=== PATIENT | female | born 1965 | race Caucasian/White ===

== ENCOUNTER 2019-09-19 09:21 | Emergency (ER) | payer OTHER ==
[~2019-09-19] VITALS: Ht 175.3 cm; Wt 49.9 kg
[2019-09-19 09:48] VITALS: BP 120/74
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
[2019-09-19] MEDS ORDERED: Tylenol #3 tab (300mg/30mg) PO ONE (10:00)
[2019-09-19] MEDS ORDERED: Tetanus/Diptheria/Pertussis IM ONE (10:00)
--- NOTE | 2019-09-19 11:21 | Diagnostic Imaging Report ---
EXAM: XR Left Hand Complete, 3 or More Views CLINICAL HISTORY: PAIN TECHNIQUE: Frontal, lateral and oblique views of the left hand. COMPARISON: No relevant prior studies available. FINDINGS: Bones/joints: Nondisplaced comminuted fracture mid metacarpal second digit. No dislocation. Soft tissues: Unremarkable. No radiopaque foreign body. IMPRESSION: Nondisplaced comminuted fracture mid metacarpal second digit. No dislocation.
[2019-09-19] MEDS ORDERED: Bacitracin Oint UD TOPIC ONE (11:45)
[2019-09-19] MEDS ORDERED: CLINDAMYCIN HC300 MG ORAL (11:45)
[2019-09-19] MEDS ORDERED: Clindamycin 150mg cap ORAL ONE (11:45)
[2019-09-19] MEDS ORDERED: TYLENOL EXTRA500 MG ORAL (11:45)
--- NOTE | 2019-09-19 11:55 | NUR ---
ED Nurse Note: Bacitracin bandage and splint applied to left hand.
[2019-09-19 12:05] VITALS: BP 120/74
--- NOTE | 2019-09-19 12:05 | NUR ---
ER DISCHARGE NOTE: Patient cleared for DC per Dr. Vega. Patient AxO x 4, VSS. Patient verbalized understanding of DC instructions. ID band removed. Patient walks with steady gait, took all belongings.
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
== END 2019-09-19 12:05 | disposition home or self-care (01) ==
LOC: EMR 09:50
DX: S62.301A Unspecified fracture of second metacarpal bone, left hand, initial encounter for closed fracture (principal); N75.0 Cyst of Bartholin's gland; Z23 Encounter for immunization; Y08.89XA Assault by other specified means, initial encounter; Y92.9 Unspecified place or not applicable
CPT/HCPCS: 29125; 56420; 73130; 90471; 90715; Z7502; 99283

== ENCOUNTER 2019-11-27 20:11 | Emergency (ER) | payer OTHER ==
[~2019-11-27] VITALS: Ht 175.3 cm; Wt 49.9 kg
[~2019-11-27 20:11] MED LIST: CLINDAMYCIN HC300 MG ORAL; TYLENOL EXTRA500 MG ORAL
--- NOTE | 2019-11-27 20:20 | NUR ---
ED Nurse Note: pt called, not in waiting room
[2019-11-27 20:40] VITALS: BP 101/56
--- NOTE | 2019-11-27 20:40 | NUR ---
ED Nurse Note: Pt walked into ED for c/o urinary frequency and incontinence. Pt also c/o diarrhea and abscess to back of L upper leg. Pt is aaox4, ambulatory with steady gait. No respiratory or cardiac distress noted.
[2019-11-27] MEDS ORDERED: CEPHALEXIN500 MG ORAL (21:01)
--- NOTE | 2019-11-27 21:06 | Emergency Room Report ---
History of Present Illness General Chief Complaint: Female Urogenital Problems Source: Patient Present Illness HPI Patient presents with complaints of urinary frequency Triage reports no discomfort however patient does report discomfort with urination feels like she has a bladder infection Patient also complains of a red lesion left upper thigh area somewhat tender to touch denies any fevers or chills denies any cough Denies any chest pain or shortness of breath Allergies: Coded Allergies: No Known Allergies (Unverified , 09/19/19) COVID-19 Screening Contact w/high risk pt: No Recent Travel to affected area: No Experienced COVID-19 symptoms?: No Patient History Past Medical History: see triage record Last Menstrual Period: n/a Reviewed Nursing Documentation: PMH: Agreed; PSxH: Agreed Nursing Documentation-PMH Past Medical History: No Stated History Review of Systems All Other Systems: negative except mentioned in HPI Physical Exam Vital Signs Date Time Temp Pulse Resp B/P (MAP) Pulse Ox O2 Delivery O2 Flow Rate FiO2 11/27/19 20:28 97.7 111 20 101/56 (71) 95 Room Air Sp02 EP Interpretation: reviewed, normal General Appearance: well appearing, no apparent distress Head: normocephalic, atraumatic Eyes: bilateral eye PERRL, bilateral eye EOMI ENT: hearing grossly normal, normal pharynx, TMs + canals normal, uvula midline Neck: full range of motion, supple, no meningismus, no bony tend Respiratory: lungs clear, normal breath sounds, no rhonchi, no respiratory distress, no retraction, no accessory muscle use Cardiovascular #1: normal peripheral pulses, regular rate, rhythm, no edema, no gallop, no JVD, no murmur Gastrointestinal: normal bowel sounds, non tender, soft, no mass, no organomegaly, non-distended, no guarding, no hernia, no pulsatile mass, no rebound Genitourinary: no CVA tenderness Musculoskeletal: normal inspection Neurologic: motor strength/tone normal, military source operations specialist III-XII nml as tested, oriented x3 , sensory intact, responsive Psychiatric: mood/affect normal Skin: other - Small folliculitis left upper thigh posteriorly no obvious fluctuance no dermatomal spread Lymphatic: normal inspection, no adenopathy Medical Decision Making Diagnostic Impression: Primary Impression: uti Additional Impression: folliculitis ER Course Given the patient's history and presentation multiple differentials are in consideration the area on the skin appears to be consistent with folliculitis patient also has history and Clinical intake consistent with UTI patient placed on appropriate antibiotics and requires close outpatient follow-up Last Vital Signs Date Time Temp Pulse Resp B/P (MAP) Pulse Ox O2 Delivery O2 Flow Rate FiO2 11/27/19 20:28 97.7 111 20 101/56 (71) 95 Room Air Status: improved Disposition: HOME, SELF-CARE Condition: Improved Scripts Cephalexin* (KEFLEX*) 500 Mg Capsule 500 MG ORAL EVERY 6 HOURS for 5 Days, CAP Prov: Jared Huerta DO 11/27/19 Referrals: [facility] Patient Instructions: Urinary Tract Infection, Folliculitis Additional Instructions: Patient is provided with the discharge instructions notified to follow up with primary doctor in the next 2-3 days otherwise return to the er with any worsening symptoms. Please note that this report is being documented using [employer] technology. This can lead to erroneous entry secondary to incorrect interpretation by the dictating instrument. Jared Huerta DO Nov 27, 2019 21:06
[2019-11-27 21:13] LABS: BILIRUBIN, URINE 1+ (NEGATIVE); GLUCOSE, URINE (UA) NEGATIVE (NEGATIVE); KETONES,URINE 1+ (NEGATIVE); LEUKOCYTE ESTERASE ,URINE 3+ (NEGATIVE); NITRITE,URINE NEGATIVE (NEGATIVE); PH,URINE 5 (4.5-8.0); PROTEIN,URINE 2+ (NEGATIVE); UROBILINOGEN,URINE 4 MG/DL (0.0-1.0)
[2019-11-27 21:16] LABS: APPEARANCE,URINE SLIGHTLY CLOUDY; COLOR,URINE YELLOW
[2019-11-27 21:30] VITALS: BP 106/72
--- NOTE | 2019-11-27 21:30 | NUR ---
ER DISCHARGE NOTE: Patient is cleared to be discharged per ERMD, pt is aox4, on room air, with stable vital signs. pt was given dc and prescription instructions, pt was able to verbalize understanding, pt id band removed. pt is able to ambulate with steady gait. pt took all belongings.
== END 2019-11-27 21:30 | disposition home or self-care (01) ==
LOC: EMR 20:48
DX: N39.0 Urinary tract infection, site not specified (principal); L73.9 Follicular disorder, unspecified; L98.8 Other specified disorders of the skin and subcutaneous tissue
CPT/HCPCS: 81003; Z7502; 99283

== ENCOUNTER 2020-05-17 09:59 | Emergency (ER) | payer OTHER ==
[~2020-05-17] VITALS: Ht 172.7 cm; Wt 49.9 kg
[~2020-05-17 09:59] MED LIST changes: +CEPHALEXIN500 MG ORAL
[2020-05-17 10:10] VITALS: BP 117/81
[2020-05-17 10:37] LABS: APPEARANCE,URINE SLIGHTLY CLOUDY; BILIRUBIN, URINE NEGATIVE (NEGATIVE); COLOR,URINE PALE YELLOW; GLUCOSE, URINE (UA) NEGATIVE (NEGATIVE); KETONES,URINE NEGATIVE (NEGATIVE); LEUKOCYTE ESTERASE ,URINE 2+ (NEGATIVE); NITRITE,URINE NEGATIVE (NEGATIVE); PH,URINE 5 (4.5-8.0); PROTEIN,URINE NEGATIVE (NEGATIVE); UROBILINOGEN,URINE NORMAL MG/DL (0.0-1.0)
--- NOTE | 2020-05-17 11:28 | Emergency Room Report ---
History of Present Illness General Chief Complaint: Female Urogenital Problems Source: Patient Present Illness HPI Patient states that for the past few days she has noted burning when she urinates. She states she is also had some flank pain on her left side. She denies fever or chills. She denies nausea or vomiting. She denies cough or congestion. She also has a separate complaint where she has had an ongoing scaly lesion on her scalp. She states this is not resolved. She would like me to evaluate it. She has no other complaints. Allergies: Coded Allergies: No Known Allergies (Unverified , 09/19/19) COVID-19 Screening Contact w/high risk pt: No Recent Travel to affected area: No Experienced COVID-19 symptoms?: No COVID-19 Testing performed RESIDENTIAL INSURANCE INSPECTOR: No Patient History Past Medical History: none, see triage record Social History: Reports: smoking; Denies: alcohol use, drug use Now: No Reviewed Nursing Documentation: PMH: Agreed; PSxH: Agreed Nursing Documentation-PMH Past Medical History: No History, Except For History Of Psychiatric Problem: Yes - PTSD Review of Systems All Other Systems: negative except mentioned in HPI Physical Exam Vital Signs Date Time Temp Pulse Resp B/P (MAP) Pulse Ox O2 Delivery O2 Flow Rate FiO2 05/17/20 10:02 98.2 93 16 110/74 (86) 95 Room Air Sp02 EP Interpretation: reviewed, normal General Appearance: no apparent distress, alert, GCS 15, non-toxic Head: normocephalic, atraumatic Eyes: bilateral eye normal inspection, bilateral eye PERRL ENT: hearing grossly normal, normal pharynx, no angioedema, normal voice Neck: full range of motion, supple/symm/no masses Respiratory: no respiratory distress, no retraction, no accessory muscle use, speaking full sentences Cardiovascular #1: regular rate, rhythm, no edema Gastrointestinal: normal bowel sounds, non tender, soft, non-distended, no guarding, no rebound Rectal: deferred Genitourinary: CVA tenderness (L) Musculoskeletal: back normal, normal range of motion, gait/station normal, non- tender Neurologic: alert, motor strength/tone normal, oriented x3, sensory intact, responsive, speech normal Psychiatric: judgement/insight normal, memory normal, mood/affect normal, no suicidal/homicidal ideation Skin: other - scaly lesion on scalp [id number], dry, peeling, area of hair loss. Medical Decision Making Diagnostic Impression: Primary Impression: UTI (urinary tract infection) Additional Impression: Tinea ER Course The patient's urinalysis is contaminated. Given that the patient has symptoms, I will go ahead and treat her with a course of antibiotics. Patient has a lesion on her scalp that is consistent with likely tinea corporis. I will give her a topical antifungal. Regardless, the patient's findings are not a medical emergency. The patient is instructed to follow-up closely with her primary care physician for further evaluation and treatment. At this time I did not identify an emergency medical admission. Laboratory Tests Test 05/17/20 10:24 Urine Color Pale yellow Urine Appearance Slightly cloudy Urine pH 5 (4.5-8.0) Urine Specific [place] 1.020 (1.005-1.035) Urine Protein Negative (NEGATIVE) Urine Glucose (UA) Negative (NEGATIVE) Urine Ketones Negative (NEGATIVE) Urine Blood 1+ (NEGATIVE) H Urine Nitrite Negative (NEGATIVE) Urine Bilirubin Negative (NEGATIVE) Urine Urobilinogen Normal MG/DL (0.0-1.0) Urine Leukocyte Esterase 2+ (NEGATIVE) H Urine RBC 2-4 /HPF (0 - 2) H Urine WBC 5-10 /HPF (0 - 2) H Urine Squamous Epithelial Cells Many /LPF (NONE/OCC) H Urine Bacteria Few /HPF (NONE) Last Vital Signs Date Time Temp Pulse Resp B/P (MAP) Pulse Ox O2 Delivery O2 Flow Rate FiO2 05/17/20 10:10 98.0 81 16 117/81 95 Room Air Status: improved Disposition: HOME, SELF-CARE Condition: Improved Referrals: NON PHYSICIAN (PCP) Farida Lainez DO May 17, 2020 11:28
[2020-05-17] MEDS ORDERED: NITROFURANTOIN100 M2 ORAL (11:29)
[2020-05-17] MEDS ORDERED: CLOTRIMAZOLE15 GM TOPIC (11:29)
[2020-05-17] MEDS ORDERED: IBUPROFEN600 M1 ORAL (11:33)
[2020-05-17 11:42] VITALS: BP 126/84
== END 2020-05-17 11:42 | disposition home or self-care (01) ==
LOC: EMR 10:39
DX: N39.0 Urinary tract infection, site not specified (principal); B35.9 Dermatophytosis, unspecified; F17.200 Nicotine dependence, unspecified, uncomplicated
CPT/HCPCS: 81003; Z7502; 99282

== ENCOUNTER 2020-05-26 11:46 | Emergency (ER) | payer OTHER ==
[~2020-05-26] VITALS: Ht 174 cm; Wt 49.9 kg
[~2020-05-26 11:46] MED LIST changes: +CLOTRIMAZOLE15 GM TOPIC; +IBUPROFEN600 M1 ORAL; +NITROFURANTOIN100 M2 ORAL
[2020-05-26 11:51] VITALS: BP 93/61
[2020-05-26] MEDS ORDERED: cefTRIAXone 1 GM in NS 55 ML IV ONE (12:15)
[2020-05-26] MEDS ORDERED: Omnipaque-300 100ml vial INJ PRN (12:15)
[2020-05-26] MEDS ORDERED: Ketorolac 30mg Inj IV ONE (12:15)
[2020-05-26] MEDS ORDERED: Hydromorphone 0.5mg/0.5ml inj IVP ONE (12:15)
--- NOTE | 2020-05-26 12:15 | Emergency Room Report ---
History of Present Illness General Chief Complaint: Lower Back Pain or Injury Source: Patient (Steve Ashford MD) Present Illness HPI 55-year-old female presents with dysuria, flank pain x7 days, patient states that she has been taking her Macrobid intermittently, now she has fevers chills, flank pain, nausea vomiting, no known aggravating leaving factors severity is moderate, she describes the pain is sharp in the flank patient presents for evaluation and treatment (Steve Ashford MD) Allergies: Coded Allergies: No Known Allergies (Unverified , 09/19/19) COVID-19 Screening Contact w/high risk pt: No Recent Travel to affected area: No Experienced COVID-19 symptoms?: No COVID-19 Testing performed STRATEGIC MANAGER: No (Steve Ashford MD) Patient History Past Medical History: see triage record Social History: Reports: smoking Reviewed Nursing Documentation: PMH: Agreed; PSxH: Agreed (Steve Ashford MD) Review of Systems All Other Systems: negative except mentioned in HPI (Steve Ashford MD) Physical Exam Vital Signs Date Time Temp Pulse Resp B/P (MAP) Pulse Ox O2 Delivery O2 Flow Rate FiO2 05/26/20 11:50 97.5 117 20 93/61 (72) Room Air Sp02 EP Interpretation: reviewed, normal General Appearance: well appearing, no apparent distress, alert Head: normocephalic, atraumatic Eyes: bilateral eye PERRL, bilateral eye EOMI ENT: uvula midline, moist mucus membranes Neck: supple, thyroid normal, supple/symm/no masses Respiratory: lungs clear, no respiratory distress, no retraction, no accessory muscle use Cardiovascular #1: normal peripheral pulses, no edema, no gallop, no murmur, tachycardia Gastrointestinal: non tender, soft, no guarding, no rebound Genitourinary: CVA tenderness (R), CVA tenderness (L) Musculoskeletal: normal inspection Neurologic: alert, oriented x3 Psychiatric: mood/affect normal Skin: no rash, warm/dry (Steve Ashford MD) Procedures Critical Care Time Critical Care Time Given the critical condition in which the patient arrived, the patient was immediately assessed by myself and the nurse, and cardiac monitoring initiated due to the potential for rapid decompensation of the patient's clinical condition. During the course of the patient's stay, I spent a considerable amount of time at the bedside performing serial re-evaluations of the patient's hemodynamic and clinical status because of the recognized potential threat to life or limb in this condition. I then had a chance to review not only all of the available current laboratory and radiographic studies obtained today, but I also reviewed old records available to me at the time. Additionally, any ancillary information available including binding cementer french cord records were reviewed. Sequential vital signs were obtained. Critical Care time of 33 minutes was performed exclusive of billable procedures. (Steve Ashford MD) Medical Decision Making Diagnostic Impression: Primary Impression: UTI (urinary tract infection) Qualified Codes: N30.00 - Acute cystitis without hematuria Additional Impression: Pyelonephritis ER Course 35-year-old female presents with dysuria flank pain concerning for pyelonephritis patient is tachycardic, hypotensive. Patient given 2 L of NS, patient given ceftriaxone plan for admission to the hospital for pyelonephritis patient hypotension improved with fluid administration Patient accepted by ATA KUMAR MD at [facility] Pending CT scan signed out to ER physician Dr. Palacio Laboratory Tests Test 05/26/20 12:30 White Blood Count 5.9 K/UL (4.8-10.8) Red Blood Count 5.30 M/UL (4.20-5.40) Hemoglobin 16.6 G/DL (12.0-16.0) H Hematocrit 46.9 % (37.0-47.0) Mean Corpuscular Volume 88 FL (80-99) Mean Corpuscular Hemoglobin 31.3 PG (27.0-31.0) H Mean Corpuscular Hemoglobin Concent 35.3 G/DL (32.0-36.0) Red Cell Distribution Width 11.7 % (11.6-14.8) Platelet Count 297 K/UL (150-450) Mean Platelet Volume 6.1 FL (6.5-10.1) L Neutrophils (%) (Auto) 43.8 % (45.0-75.0) L Lymphocytes (%) (Auto) 36.9 % (20.0-45.0) Monocytes (%) (Auto) 15.0 % (1.0-10.0) H Eosinophils (%) (Auto) 2.7 % (0.0-3.0) Basophils (%) (Auto) 1.5 % (0.0-2.0) Urine Color Pale yellow Urine Appearance Cloudy Urine pH 5 (4.5-8.0) Urine Specific [place] 1.025 (1.005-1.035) Urine Protein 2+ (NEGATIVE) H Urine Glucose (UA) Negative (NEGATIVE) Urine Ketones 1+ (NEGATIVE) H Urine Blood 1+ (NEGATIVE) H Urine Nitrite Negative (NEGATIVE) Urine Bilirubin Negative (NEGATIVE) Urine Urobilinogen 4 MG/DL (0.0-1.0) H Urine Leukocyte Esterase 3+ (NEGATIVE) H Urine RBC 0-2 /HPF (0 - 2) Urine WBC 5-10 /HPF (0 - 2) H Urine Squamous Epithelial Cells Moderate /LPF (NONE/OCC) H Urine Bacteria Moderate /HPF (NONE) H Sodium Level 139 MMOL/L (136-145) Potassium Level 3.6 MMOL/L (3.5-5.1) Chloride Level 101 MMOL/L (98-107) Carbon Dioxide Level 33 MMOL/L (21-32) H Anion Gap 5 mmol/L (5-15) Blood Urea Nitrogen 25 mg/dL (7-18) H Creatinine 1.0 MG/DL (0.55-1.30) Estimated Glomerular Filtration Rate 57.1 mL/min (>60) Glucose Level 112 MG/DL (74-106) H Lactic Acid Level 1.70 mmol/L (0.4-2.0) Calcium Level 10.0 MG/DL (8.5-10.1) Total Bilirubin 0.4 MG/DL (0.2-1.0) Aspartate Amino Transferase (AST) 15 U/L (15-37) Alanine Aminotransferase (ALT) 27 U/L (12-78) Alkaline Phosphatase 105 U/L (46-116) Total Protein 6.8 G/DL (6.4-8.2) Albumin 3.7 G/DL (3.4-5.0) Globulin 3.1 g/dL Albumin/Globulin Ratio 1.2 (1.0-2.7) Lipase 228 U/L (73-393) Microbiology Date/Time Source Procedure Growth Status 05/26/20 13:00 Nasopharynx SARS-CoV-2 RdRp Gene Assay - Final Complete (Steve Ashford MD) ER Course CT abd pel: Findings: Lack of enteric contrast limits assessment of the GI tract. The stomach is somewhat distended, filled with liquid and semisolid material. The duodenum is also distended. Duodenal distention extends to the ligament of Treitz. However, no obstructing mass is demonstrated. What is probably a normal appendix is demo nstrated. There is moderate retained stool throughout the colon. No evidence of diverticulosis or diverticulitis. No small bowel distention. No free or loculated intraperitoneal gas or fluid is evident. The distal esophagus is unremarkable. The liver, gallbladder, bile ducts are unremarkable. The pancreas demonstrates dilatation of the downstream pancreatic duct. No obstructive lesion is demonstrated. No pancreatic parenchymal abnormality is evident. The spleen is unremarkable. The adrenals, kidneys are unremarkable. No retroperitoneal or mesenteric mass or adenopathy. No pelvic mass or adenopathy. Uterus and adnexal structures are unremarkable. The included lung bases demonstrate posterior dependent atelectatic changes on the right. The bones are unremarkable for age. Impression: Limited assessment of the GI tract, due to lack of enteric contrast administration Distended stomach and duodenum, distention extending to the ligament of Treitz. No obstructing mass demonstrated. 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 Correlate with clinical findings Dilatation of the downstream pancreatic duct. No obstructive lesion demonstrated, however. Etiology/significance uncertain. Patient was endorsed to me by the previous physician. She remained hemodynamically stable and neurovascularly intact in the emergency department and in no acute distress. She underwent a CT abdomen pelvis that did not show any acute emergent conditions. Patient was transferred to [facility] in stable condition. (Moises Palacio M.D.) Last Vital Signs Date Time Temp Pulse Resp B/P (MAP) Pulse Ox O2 Delivery O2 Flow Rate FiO2 05/26/20 11:51 97.5 117 20 93/61 Room Air (Steve Ashford MD) Disposition: SHORT-TERM HOSP - [facility] Condition: Serious Referrals: NON PHYSICIAN (PCP) Steve Ashford MD May 26, 2020 12:15 Moises Palacio M.D. May 26, 2020 15:43
[2020-05-26 12:44] LABS: APPEARANCE,URINE CLOUDY; BILIRUBIN, URINE NEGATIVE (NEGATIVE); GLUCOSE, URINE (UA) NEGATIVE (NEGATIVE); KETONES,URINE 1+ (NEGATIVE); LEUKOCYTE ESTERASE ,URINE 3+ (NEGATIVE); NITRITE,URINE NEGATIVE (NEGATIVE); PH,URINE 5 (4.5-8.0); PROTEIN,URINE 2+ (NEGATIVE); UROBILINOGEN,URINE 4 MG/DL (0.0-1.0)
[2020-05-26 12:47] LABS: COLOR,URINE PALE YELLOW
[2020-05-26 12:51] LABS: POTASSIUM 3.6 MMOL/L (3.5-5.1)
[2020-05-26 12:56] LABS: ALBUMIN 3.7 G/DL (3.4-5.0); ALBUMIN/GLOBULIN RATIO 1.2 (1.0-2.7); BILIRUBIN,TOTAL 0.4 MG/DL (0.2-1.0)
[2020-05-26 13:01] LABS: BASOPHILS % (AUTO) 1.5 % (0.0-2.0); EOSINOPHILS % (AUTO) 2.7 % (0.0-3.0); HEMATOCRIT 46.9 % (37.0-47.0); HEMOGLOBIN 16.6 G/DL (12.0-16.0); LYMPHOCYTES % (AUTO) 36.9 % (20.0-45.0); MEAN CORPUSCULAR VOLUME 88 FL (80-99); NEUTROPHILS % (AUTO) 43.8 % (45.0-75.0); PLATELET COUNT 297 K/UL (150-450); RED CELL DISTRIBUTION WIDTH 11.7 % (11.6-14.8); WHITE BLOOD COUNT 5.9 K/UL (4.8-10.8)
[2020-05-26 14:23] VITALS: BP 104/62
--- NOTE | 2020-05-26 15:21 | Diagnostic Imaging Report ---
Clinical Indication: Abdominal pain, dysuria, flank pain for 7 days Technique: No oral contrast utilized, per emergency room physician request IV administration nonionic contrast. Venous phase spiral acquisition obtained through the abdomen and pelvis. Multiplanar reconstructions were generated. Total dose length product 162 mGycm. CTDIvol(s) 3 mGy. Dose reduction achieved using automated exposure control Comparison: none Findings: Lack of enteric contrast limits assessment of the GI tract. The stomach is somewhat distended, filled with liquid and semisolid material. The duodenum is also distended. Duodenal distention extends to the ligament of Treitz. However, no obstructing mass is demonstrated. What is probably a normal appendix is demonstrated. There is moderate retained stool throughout the colon. No evidence of diverticulosis or diverticulitis. No small bowel distention. No free or loculated intraperitoneal gas or fluid is evident. The distal esophagus is unremarkable. The liver, gallbladder, bile ducts are unremarkable. The pancreas demonstrates dilatation of the downstream pancreatic duct. No obstructive lesion is demonstrated. No pancreatic parenchymal abnormality is evident. The spleen is unremarkable. The adrenals, kidneys are unremarkable. No retroperitoneal or mesenteric mass or adenopathy. No pelvic mass or adenopathy. Uterus and adnexal structures are unremarkable. The included lung bases demonstrate posterior dependent atelectatic changes on the right. The bones are unremarkable for age. Impression: Limited assessment of the GI tract, due to lack of enteric contrast administration Distended stomach and duodenum, distention extending to the ligament of Treitz. No obstructing mass demonstrated. 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 Correlate with clinical findings Dilatation of the downstream pancreatic duct. No obstructive lesion demonstrated, however. Etiology/significance uncertain. The CT scanner at [facility] is accredited by the [employer] and the scans are performed using protocols designed to limit radiation exposure to as low as reasonably achievable to attain images of sufficient resolution adequate for diagnostic evaluation.
[2020-05-26 15:51] VITALS: BP 127/74
== END 2020-05-26 15:54 | disposition short-term general hospital (02) ==
LOC: EMR 12:04
DX: N30.00 Acute cystitis without hematuria (principal); N12 Tubulo-interstitial nephritis, not specified as acute or chronic
CPT/HCPCS: 36415; 74177; 80053; 81003; 83605; 83690; 85025; 87040; 87086; 96361; 96365; 96375; J0696; J1170; J1885; J7030; Q9965; U0002; Z7502; 99291